=== PATIENT | female | born 1980 | race Two or more races ===

== ENCOUNTER 2016-06-16 02:22 | Emergency (ER) | payer OTHER ==
--- NOTE | ~2016-06-16 | EKG ---
PATIENT: KOBI REEVES UNIT #: [id number] Ventricular Rate: 99 BPM Atrial Rate: 99 BPM P-R Interval: 158 ms QRS Duration: 68 ms Q-T Interval: 322 ms QTC Calculation(Bezet): 413 ms P Pendleton: 86 degrees Calculated R Pendleton: 65 degrees Calculated T Pendleton: 88 degrees Diagnosis Line: Sinus rhythm with marked sinus arrhythmia Diagnosis Line: Septal infarct , age undetermined Diagnosis Line: Abnormal ECG Diagnosis Line: No previous ECGs available Diagnosis Line: Confirmed by HARESH NEGRON MD ([id number]) on Diagnosis Line: 06/16/2016 8:03:43 AM INTERPRETING MD: JAMIL GRACE
--- NOTE | ~2016-06-16 | CR72 ---
[facility] A Service of [facility] & [facility] RADIOLOGY TEXT RESULTS PATIENT: KOBI REEVES LOCATION: [facility] : [birth year] UNIT #: [id number] AGE: [address]: Alexy Gray MD SEX: F ORDER DR: [id number] [facility] [address] [facility]. [place], [place] [address] [id number] E MR#: [id number] Acc #: [id number] NAME: KOBI REEVES : 1980 SEX: F STUDY DATE/TIME: 06/16/2016 2:45 UNIT: [facility] ROOM: STUDY DESCRIPTION: CR Chest Single View Portable Attending Physician: Alexy Gray M.D. Ordering Physician: Alexy Gray M.D. Primary Care Physician: Primary Care Physician No MEDICAL IMAGING REPORT This report is preliminary unless electronic signature is present EXAM AP portable chest 06/16/2016 HISTORY 36-year-old female in the ED complaining of 2-week history of shortness of air and chest congestion. TECHNIQUE AP portable upright chest x-ray. FINDINGS Heart size and pulmonary vascularity are normal. Mild infiltrate or atelectasis in the right infrahilar region. The lungs are otherwise clear. No visible pleural effusion. IMPRESSION Mild atelectasis or infiltrate in the right infrahilar region. The lungs are otherwise clear. The remainder of the examination is negative. Dictated by... Jose Dobson M.D. THIS IS AN ELECTRONICALLY VERIFIED REPORT Jose Dobson M.D. at 06/16/2016 9:58 PM CHILOW/kei TD: 06/16/2016 12:13 JOB #: [id number] MEDICAL IMAGING REPORT COPY
[~2016-06-16 02:22] MED LIST: ALBUTEROL 0.5ML INH; ANSAID100 MG PO; MOTRIN400 MG PO; SYNTHROID0.05 MG PO; ZOLOFT PO
[2016-06-16 02:58] LABS: BASOPHIL# 0.1 X10e3 (0-0.3); BASOPHIL% 0.7 % (0-2.5); EOSINOPHIL# 0.1 X10e3 (0-0.7); EOSINOPHIL% 0.3 % (0.0-7.0); HEMATOCRIT 39.5 % (35.0-45.0); HEMOGLOBIN 12.7 gm/dL (12.0-16.0); LYMPHOCYTE# 4.7 X10e3 (1.0-3.5); MEAN CELL VOLUME 81.1 FL (83-96); MEAN PLATELET VOLUME 7.3 FL (6.5-11.5); MONOCYTE# 1.3 X10e3 (0-1.0); MONOCYTE% 6.4 % (3.0-12.0); NEUTROPHIL# 14.4 X10e3 (1.5-7.1); NEUTROPHIL% 69.6 % (40-75); PLATELET COUNT 523 X10e3 (140-420); RED BLOOD COUNT 4.87 X10e (3.90-5.30); RED CELL DISTRIBUTION WIDTH 17.7 % (11.0-15.5); WHITE BLOOD COUNT 20.7 X10e3 (4.0-10.5)
[2016-06-16 02:59] LABS: DIFF IND YES
[2016-06-16 03:16] LABS: PLATELET ESTIMATE INCREASED (NORMAL)
[2016-06-16 03:17] LABS: ANISOCYTOSIS MOD
[2016-06-16 03:29] LABS: ALBUMIN SERUM 4.1 g/dL (3.5-5.0); ALKALINE PHOSPHATASE 61 U/L (32-92); ALT (SGPT) 16 U/L (10-40); AST (SGOT) 16 U/L (10-42); BILIRUBIN, DIRECT 0.1 mg/dL (0.0-0.2); BILIRUBIN,INDIRECT 0.2 mg/dL (0.0-0.9); BILIRUBIN,TOTAL 0.3 mg/dL (0.2-2.0); BLOOD UREA NITROGEN 14 mg/dL (9-23); CALCIUM SERUM 9.2 mg/dL (8.4-10.2); CARBON DIOXIDE 23 mmol/L (22-31); CHLORIDE 104 mmol/L (100-111); CREATININE SERUM 0.8 mg/dL (0.6-1.4); GLOM FILT RATE Estimated ABOVE60 mL/min (>60); GLUCOSE FASTING 146 mg/dL (70-110); PROTEIN TOTAL SERUM 7.5 g/dL (6.0-8.3); SODIUM 138 mmol/L (135-145)
[2016-06-16 03:31] LABS: POC - CKMB <1.0 ng/mL (0.0-7.9); POC - TROPONIN <0.05 ng/mL (<=0.05)
[2016-08-22] MEDS ORDERED: ACETAMINOPHEN500 M4 (14:30)
[2016-08-22] MEDS ORDERED: FERRO-TIME325 MG PO (14:31)
[2016-08-22] MEDS ORDERED: MONTELUKAST SOD10 MG PO (14:31)
[2016-08-22] MEDS ORDERED: ALL DAY ALLERGY10 M3 PO (14:31)
[2016-08-22] MEDS ORDERED: SYMBICORT 160/4.6 G1 (14:32)
[2016-08-22] MEDS ORDERED: ALBUTEROL17 GM INH (14:32)
[2016-08-22] MEDS ORDERED: HYDROCODON-ACE1 EAC7 PO (14:43)
== END 2016-06-16 04:10 | disposition home or self-care (01) ==
LOC: CED 02:22
PROVIDERS: Emergency Medicine
DX: J45.901 Unspecified asthma with (acute) exacerbation (principal)
CPT/HCPCS: 36415; 71010; 80048; 80076; 82553; 84484; 85025; 87040; 93005; 94644; 96374; 99291; J2930

== ENCOUNTER 2016-07-21 18:32 | Emergency (ER) | payer OTHER ==
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
[2016-08-22] MEDS ORDERED: ACETAMINOPHEN500 M4 (14:30)
[2016-08-22] MEDS ORDERED: FERRO-TIME325 MG PO (14:31)
[2016-08-22] MEDS ORDERED: MONTELUKAST SOD10 MG PO (14:31)
[2016-08-22] MEDS ORDERED: ALL DAY ALLERGY10 M3 PO (14:31)
[2016-08-22] MEDS ORDERED: SYMBICORT 160/4.6 G1 (14:32)
[2016-08-22] MEDS ORDERED: ALBUTEROL17 GM INH (14:32)
[2016-08-22] MEDS ORDERED: HYDROCODON-ACE1 EAC7 PO (14:43)
== END 2016-07-21 19:04 | disposition home or self-care (01) ==
LOC: CFTX 18:32
DX: S42.392A Other fracture of shaft of left humerus, initial encounter for closed fracture (principal); V89.2XXA Person injured in unspecified motor-vehicle accident, traffic, initial encounter
CPT/HCPCS: 73060; 99283

== ENCOUNTER → 2016-08-22 | Outpatient (CLI) | payer OTHER ==
[~2016-08-22] MED LIST changes: +ACETAMINOPHEN500 M4; +ALBUTEROL17 GM INH; +ALL DAY ALLERGY10 M3 PO; +ASPIRIN ENTERI325 M1 PO; +DOCUSATE SODIU100 MG PO; +FERRO-TIME325 MG PO; +HYDROCODON-ACE1 EAC7 PO; +LORTAB 10-3251 EACH PO; +MONTELUKAST SOD10 MG PO; +SYMBICORT 160/4.6 G1
--- NOTE | ~2016-08-22 | EKG ---
PATIENT: KOBI REEVES UNIT #: [id number] Ventricular Rate: 90 BPM Atrial Rate: 90 BPM P-R Interval: 148 ms QRS Duration: 82 ms Q-T Interval: 350 ms QTC Calculation(Bezet): 428 ms P Larned: 66 degrees Calculated R Larned: 27 degrees Calculated T Larned: 47 degrees Diagnosis Line: Normal sinus rhythm Diagnosis Line: Normal ECG Diagnosis Line: When compared with ECG of 14-MAR-2015 06:20, Diagnosis Line: No significant change was found Diagnosis Line: Confirmed by HARESH NEGRON MD ([id number]) on Diagnosis Line: 08/26/2016 3:11:45 PM INTERPRETING MD: JAMIL GRACE
[2016-08-22 14:28] LABS: HEMATOCRIT 39.2 % (35.0-45.0); HEMOGLOBIN 12.6 gm/dL (12.0-16.0); MEAN CELL VOLUME 81.2 FL (83-96); MEAN CORPUSCULAR HEMOGLOBIN 26.1 PG (28-34); MEAN CORPUSCULAR HGB CONC 32.1 g/dL (30-36); RED BLOOD COUNT 4.82 X10e (3.90-5.30); RED CELL DISTRIBUTION WIDTH 15.9 % (11.0-15.5); WHITE BLOOD COUNT 12.3 X10e3 (4.0-10.5)
[2016-08-22 15:16] LABS: BUN/CREATININE RATIO 16.66; CALCIUM SERUM 9.2 mg/dL (8.4-10.2); CREATININE SERUM 0.6 mg/dL (0.6-1.4); GLOM FILT RATE Estimated 116.4 mL/min (>60)
== END | disposition home or self-care (01) ==
LOC: CAMB 13:54 → EDSTATUS 14:00
PROVIDERS: Specialist
DX: Z01.818 Encounter for other preprocedural examination (principal); S42.302A Unspecified fracture of shaft of humerus, left arm, initial encounter for closed fracture
CPT/HCPCS: 36415; 80048; 85027; 93005

== ENCOUNTER 2016-08-27 07:37 | Observation (INO) | payer OTHER ==
--- NOTE | ~2016-08-27 | CO ---
Unit #: [id number] #: [id number] Patient: KOBI REEVES [id number] [address] [place], [place] [address] [id number] I MR#: [id number] NAME: KOBI REEVES ROOM: 454 Age: 36 Sex: F Admission Date: 08/27/2016 : 1980 Attending Physician: Timoteo Almaguer M.D. Primary Care Physician: [facility] CONSULTATION REPORT REASON FOR CONSULTATION Asthma. HISTORY OF PRESENT ILLNESS The patient is a 34-year-old female with history of hypothyroidism and asthma, is admitted for the left humerus fracture, status post humerus IM nail, postop day 0. The hospitalist consult has been placed for the asthma exacerbation. The patient stated that after the extubation, the patient is having the sore throat and is having the blood-tinged cough. The patient uses the inhalers at home for the last 2 years and denies any fevers, chills, nausea, or vomiting. The patient is on room air and not requiring any oxygen and not in respiratory distress. The patient received Solu-Medrol and DuoNebs. The patient also complained of left shoulder pain plus chest pain, and we did see the troponins that has been negative. PAST MEDICAL HISTORY History of hypothyroidism and asthma. ALLERGIES Tylenol. HOME MEDICATIONS Synthroid and Proventil. FAMILY HISTORY Coronary artery disease. SOCIAL HISTORY The patient is originally from [place]. Lives with her sister and vdxuizy-yf-djy. Lifelong nonsmoker. Does not drink alcohol. Denies any possibility of . REVIEW OF SYSTEMS 14-point review of systems was performed and other pertinent positive findings are described above. Remaining are negative. PHYSICAL EXAMINATION GENERAL: The patient is lying on her bed, not in acute distress. VITAL SIGNS: Temperature 97.2, pulse 121, respirations 18, saturation 93%, blood pressure 117/64. HEENT: Head, atraumatic and normocephalic. Pupils are equal, round, and reactive to light and accommodation. Extraocular movements are intact. Unit #: [id number] #: [id number] Patient: KOBI REEVES LUNGS: Decreased air entry bibasally. No rhonchi. No wheezing. HEART: Regular rate and rhythm. ABDOMEN: Soft. Positive bowel sounds. EXTREMITIES: Status post IM nailing of the left humerus. No cyanosis. No clubbing. ASSESSMENT 1. Left humerus fracture, status post IM nail. 2. Asthma. 3. Sore throat, status post intubation/extubation. PLAN To continue the postop care with Surgery. The patient will have nebulizers and we will have the Anesthesia come back and check the throat for irritation and the patient might benefit from the Cepacol. Troponin is negative. Further recommendations will follow. Dictated by... Oly Liang/jose TD: 08/28/2016 18:13 JOB #: [id number] CONSULTATION REPORT Page 1 of 1 X X CONSULTATION REPORT
--- NOTE | ~2016-08-27 | OR ---
Unit #: [id number] #: [id number] Patient: KOBI REEVES [id number] [address] [place], [place] [address] [id number] I MR#: [id number] NAME: KOBI REEVES ROOM: 454 Date of Procedure: 08/27/2016 Admission Date: 08/27/2016 Surgeon: Timoteo Almaguer M.D. : 1980 Attending Physician: Timoteo Almaguer M.D. Primary Care Physician: [facility] OPERATIVE REPORT PREOPERATIVE DIAGNOSIS Displaced left diaphyseal humerus fracture. POSTOPERATIVE DIAGNOSIS Displaced left diaphyseal humerus fracture. PROCEDURE PERFORMED Left humeral nailing. ELECTRONICS ASSEMBLER Miguel Angel Waller, master certified rv technician. ANESTHESIA General anesthesia. COMPLICATIONS None. COUNTS Sponge and needle counts were correct at the conclusion of the case. INDICATION FOR SURGERY Ms. Reeves is a 36-year-old female, who has a history of left mid diaphyseal humerus fracture. She has attempted conservative treatment; however, due to worsening pain and fracture displacement, she elected to proceed with surgical intervention. The risks and benefits of the left humeral nailing were discussed in detail including fracture malunion, nonunion, painful hardware, need for hardware removal, DVT, PE, and . Questions were answered to her satisfaction. Informed consent was obtained and placed in chart. DESCRIPTION OF PROCEDURE After the patient was identified in the preop hold area, the operative site was marked in front of the patient. She was brought to the operating room for surgery and placed supine in the operating room table. General endotracheal anesthesia was placed uneventfully, placed in beach chair position. Left upper extremity was then prepped and draped in usual sterile fashion. Then, using the C-arm guidance, a 1-inch incision was made superior to the greater trochanter with a 15-blade scalpel. The rotator cuff was split longitudinally in line with the fibers and then sharp tipped awl placed in the humeral head. Then, the sharp tipped awl was then placed into the medullary canal. The ball-tipped guidewire was Unit #: [id number] #: [id number] Patient: KOBI REEVES then placed into the medullary canal. I then passed through the fracture down to the elbow distally. It was then measured in length and then flexible reamers were then used and reamed over the guidewire to the appropriate size. It was reamed to 9 mm with good cortical chatter. Then, 8 mm nail in diameter and 24 cm in length was then opened from Markus and was then placed over the guidewire to the appropriate depth. The guidewire was removed. Then, the two screws were placed proximally, one oblique and one transverse using the outrigger guide using standard AO fashion. I then using perfect circles technique. The distal cortical locking screw was placed in the static locking hole again using C-arm guidance. The wounds were copiously irrigated with sterile saline. Final C-arm images were obtained, which showed good fracture reduction and hardware placement. 0 Vicryl was used to close the rotator cuff and fascial layer, 2-0 Vicryl to close the dermis, and 3-0 nylon was used to close the skin. Sterile dressings were applied. She was awakened from anesthesia and returned to recovery room in good condition. No intraoperative complications. Dictated by... Oly Evans/jose TD: 08/28/2016 00:01 JOB #: [id number] OPERATIVE REPORT Page 1 of 1 X Timoteo Almaguer MD X PROCEDURE OPERATIVE NOTE
--- NOTE | ~2016-08-27 | EKG ---
PATIENT: KOBI REEVES UNIT #: [id number] Ventricular Rate: 106 BPM Atrial Rate: 106 BPM P-R Interval: 142 ms QRS Duration: 68 ms Q-T Interval: 328 ms QTC Calculation(Bezet): 435 ms P Maben: 73 degrees Calculated R Maben: 52 degrees Calculated T Maben: 47 degrees Diagnosis Line: Sinus tachycardia Diagnosis Line: Low voltage QRS Diagnosis Line: Borderline ECG Diagnosis Line: When compared with ECG of 22-AUG-2016 14:20, Diagnosis Line: No significant change was found Diagnosis Line: Confirmed by HARESH NEGRON MD ([id number]) on Diagnosis Line: 08/28/2016 7:09:00 PM INTERPRETING MD: JAMIL GRACE
--- NOTE | ~2016-08-27 | DS ---
Unit #: [id number] #: [id number] Patient: KOBI REEVES [id number] [address] [address] [id number] I MR#: [id number] NAME: KOBI REEVES ROOM: 454 Age: 36 Sex: F Admission Date: 08/27/2016 : 1980 Discharge Date: 08/29/2016 Attending Physician: Timoteo Almaguer M.D. Primary Care Physician: [facility] DISCHARGE SUMMARY ADMITTING DIAGNOSIS Displaced left humerus fracture. DISCHARGE DIAGNOSIS Displaced left humerus fracture. HOSPITAL COURSE On 08/27/2016 Ms. Reeves underwent a left humeral nailing. She tolerated the procedure well. She was transported to the fourth floor where she underwent physical therapy and medical management. She is doing well and is ready to be discharged. CONDITION UPON DISCHARGE Stable. DISPOSITION Discharge home. MEDICATIONS Medications on discharge include her routine home meds, in addition to Sheldon 10/325 mg 1-2 tabs p.o. q.4 hours p.r.n. pain. FOLLOWUP AND INSTRUCTIONS 1. Ms. Reeves is going to be discharged home. 2. Followup appointment with Dr. Almaguer is going to be in 2 weeks. 3. Daily dressing changes needed. 4. Patient is weightbearing as tolerated at the left upper extremity. Sling as needed for comfort. 5. Return to office in 2 weeks. 1. Dictated by... Javier London/garry TD: 08/29/2016 10:07 JOB #: [id number] Unit #: [id number] #: [id number] Patient: KOBI REEVES DISCHARGE SUMMARY Page 1 of 1 X Ella Johnson DISCHARGE SUMMARY
--- NOTE | ~2016-08-27 | CR156 ---
[facility] A Service of [facility] RADIOLOGY TEXT RESULTS PATIENT: KOBI REEVES LOCATION: C4B 454-01 : [birth year] UNIT #: [id number] AGE: [address]: Timoteo Almaguer MD SEX: F ORDER DR: [id number] [facility] [address] [facility]. [place], [place] [address] [id number] I MR#: [id number] Acc #: [id number] NAME: KOBI REEVES : 1980 SEX: F STUDY DATE/TIME: 08/27/2016 11:03 UNIT: C4B ROOM: [facility] STUDY DESCRIPTION: CR Humerus Min 2 View Lt Attending Physician: Timoteo Almaguer M.D. Ordering Physician: Timoteo Almaguer M.D. Primary Care Physician: [facility] MEDICAL IMAGING REPORT This report is preliminary unless electronic signature is present EXAM Left humerus INDICATIONS Left humerus fracture with internal fixation intraoperative imaging. Fluoro time is 2.48 minutes. Four images were obtained and show a long metal fredo being placed through the humerus and transfixing the mid humeral fracture. Dictated by... Carmelo Collins M.D. THIS IS AN ELECTRONICALLY VERIFIED REPORT Carmelo Collins M.D. at 08/28/2016 7:04 AM CARLA/mary TD: 08/27/2016 17:58 JOB #: [id number] MEDICAL IMAGING REPORT Page 1 of 1 COPY
--- NOTE | ~2016-08-27 | CR156 ---
[facility] A Service of [facility] RADIOLOGY TEXT RESULTS PATIENT: KOBI REEVES LOCATION: C4B 454-01 : [birth year] UNIT #: [id number] AGE: [address]: Timoteo Almaguer MD SEX: F ORDER DR: [id number] [facility] [address] [facility]. [place], [place] [address] [id number] I MR#: [id number] Acc #: [id number] NAME: KOBI REEVES : 1980 SEX: F STUDY DATE/TIME: 08/27/2016 1204 UNIT: C4B ROOM: [facility] STUDY DESCRIPTION: CR Humerus Min 2 View Lt Attending Physician: Timoteo Almaguer M.D. Ordering Physician: Timoteo Almaguer M.D. Primary Care Physician: [facility] MEDICAL IMAGING REPORT This report is preliminary unless electronic signature is present EXAM Left humerus 2 views 08/27/2016 1204 hours HISTORY Humerus fracture status post ORIF today. COMPARISON Intraoperative films 08/27/2016 and left humerus films 07/21/2016 FINDINGS 2 views of the left humerus demonstrate placement of an intramedullary fredo extending from the proximal humerus to the distal humeral metaphysis with 2 locking screws proximally and 1 distally. The midshaft humeral fracture is in near anatomic alignment. No other fracture seen. IMPRESSION Interval placement of an intramedullary fredo through the shaft of the humerus traversing the transverse fracture at the midshaft with reduction of the fracture. Bones are in near anatomic alignment. There are 2 transverse locking screws proximally and 1 distally.. Dictated by... Toshia Hobbs M.D. THIS IS AN ELECTRONICALLY VERIFIED REPORT Toshia Hobbs M.D. at 08/28/2016 9:26 AM Maite TD: 08/27/2016 16:20 JOB #: [id number] MEDICAL IMAGING REPORT Page 1 of 1 COPY
--- NOTE | ~2016-08-27 | DS ---
Unit #: [id number] #: [id number] Patient: KOBI HOBBS [id number] [address] [address] [id number] I MR#: [id number] NAME: KOBI HOBBS ROOM: 454 Age: 36 Sex: F Admission Date: 08/27/2016 : 1980 Discharge Date: 08/29/2016 Attending Physician: Timoteo Almaguer M.D. Primary Care Physician: [facility] DISCHARGE SUMMARY DISCHARGE DIAGNOSES 1. Left humerus fracture, status post intramedullary nailing. 2. Asthma exacerbation. INDICATIONS FOR OBSERVATION Ms. Hobbs is a 36-year-old female who underwent left humerus intramedullary nailing on 08/27/2016. She was admitted for postoperative pain control. HOSPITAL COURSE During her hospitalization, she had an asthma exacerbation. Medicine consult was obtained and instituted inhibitors. She did have an improvement. Her pain was improved with oral pain medications. She was deemed stable for discharge home on 08/29/2016. DISCHARGE INSTRUCTIONS 1. Range of motion and weightbearing as tolerated to the left upper extremity. 2. She will follow up in the office in 10-14 days. 3. Patient will exercise on her own until followup. 4. Mounds dressing will be applied before patient's discharge and she may shower. 5. Keep dressings on until postoperative day 7 and then may discontinue. 6. Any questions or concerns, please call the office at [phone]. Dictated by... lOy Evans/bandar TD: 08/29/2016 07:46 JOB #: [id number] DISCHARGE SUMMARY Page 1 of 1 X Timoteo Almaguer MD X DISCHARGE SUMMARY
[~2016-08-27 07:37] MED LIST changes: -ASPIRIN ENTERI325 M1 PO; -DOCUSATE SODIU100 MG PO; -LORTAB 10-3251 EACH PO
[2016-08-27 08:45] LABS: BASOPHIL# 0.1 X10e3 (0-0.3); BASOPHIL% 0.4 % (0-2.5); HEMATOCRIT 36.8 % (35.0-45.0); HEMOGLOBIN 11.8 gm/dL (12.0-16.0); LYMPHOCYTE# 1.7 X10e3 (1.0-3.5); LYMPHOCYTE% 8.3 % (17.0-45.0); MEAN CELL VOLUME 81.6 FL (83-96); MEAN CORPUSCULAR HGB CONC 31.9 g/dL (30-36); MEAN PLATELET VOLUME 7.2 FL (6.5-11.5); MONOCYTE# 0.9 X10e3 (0-1.0); MONOCYTE% 4.6 % (3.0-12.0); NEUTROPHIL# 17.8 X10e3 (1.5-7.1); NEUTROPHIL% 86.7 % (40-75); PLATELET COUNT 476 X10e3 (140-420); RED BLOOD COUNT 4.52 X10e (3.90-5.30); RED CELL DISTRIBUTION WIDTH 15.7 % (11.0-15.5); WHITE BLOOD COUNT 20.5 X10e3 (4.0-10.5)
[2016-08-27 08:46] LABS: DIFF IND YES
[2016-08-27 09:48] LABS: PLATELET ESTIMATE INCREASED (NORMAL)
[2016-08-27 09:49] LABS: RBC NORMAL YES
[2016-08-27 18:18] LABS: CK TOTAL 39 IU/L (26-140)
[2016-08-28 03:33] LABS: HEMATOCRIT 34.3 % (35.0-45.0)
[2016-08-28 04:05] LABS: BUN/CREATININE RATIO 18.33; CALCIUM SERUM 8.8 mg/dL (8.4-10.2); CREATININE SERUM 0.6 mg/dL (0.6-1.4); GLOM FILT RATE Estimated 116.4 mL/min (>60); POTASSIUM 4.2 mmol/L (3.5-5.1)
[2016-08-29 03:35] LABS: HEMATOCRIT 32.8 % (35.0-45.0); HEMOGLOBIN 10.6 gm/dL (12.0-16.0)
[2016-08-29 03:59] LABS: CALCIUM SERUM 8.4 mg/dL (8.4-10.2); CREATININE SERUM 0.5 mg/dL (0.6-1.4); GLOM FILT RATE Estimated 123.7 mL/min (>60); MAGNESIUM 1.9 mg/dL (1.6-3.0); POTASSIUM 3.8 mmol/L (3.5-5.1)
[2016-08-29] MEDS ORDERED: DOCUSATE SODIU100 MG PO (09:17)
[2016-08-29] MEDS ORDERED: ASPIRIN ENTERI325 M1 PO (09:20)
[2016-08-29] MEDS ORDERED: LORTAB 10-3251 EACH PO (09:23)
== END 2016-08-29 13:48 | disposition home or self-care (01) ==
LOC: CSUR 07:37 → C4B 08:31 → CPACUOF 08:31 → CSUR 09:30 → C4B 12:39 → CPACUOF 12:39 → CSUR 12:39 → C4B 12:50 → CPACUOF 12:50 → C4B 08-29 13:48
PROVIDERS: Internal Medicine; Specialist
DX: S42.392A Other fracture of shaft of left humerus, initial encounter for closed fracture (principal); J45.909 Unspecified asthma, uncomplicated; E03.9 Hypothyroidism, unspecified; J02.9 Acute pharyngitis, unspecified; Z82.49 Family history of ischemic heart disease and other diseases of the circulatory system
CPT/HCPCS: 73060; 76001; 80048; 82550; 83735; 84484; 84703; 85014; 85018; 85025; 93005; 94640; 94664; 94760; 96374; 96375; 96376; 97110; 97116; 97161; 97165; C1713; G0378; J0330; J0690; J1100; J1170; J1885; J2250; J2405; J2710; J2795; J2930; J3010